=== PATIENT | male | born 1945 | race Caucasian/White ===

== ENCOUNTER 2017-03-16 11:52 | Emergency (ER) | payer OTHER ==
[~2017-03-16] VITALS: Ht 172.7 cm; Wt 75.0 kg
[2017-03-16 12:17] VITALS: BP 134/73; PULSE 93; RESP 16; TEMP 98.9; O2SAT 95
[2017-03-16] MEDS ORDERED: LIDOCAINE HCL 1% 50 ML VIAL INFIL ONE (13:30)
--- NOTE | 2017-03-16 13:34 | PD ---
HPI Chief Complaint: Laceration/Skin Injury Time Seen by Provider: 12:29 Travel History International Travel<30 days: No Contact w/Intl Traveler<30days: No Traveled to known affect area: No History of Present Illness HPI 71-year-old male presents emergency Department with complaint of a laceration to his right hand from glass falling. He arrived via EMS and apparently had a syncopal episode on the ambulance secondary to looking at the blood. He was in a sitting position and did not fall. Not up-to-date on tetanus update. Denies decreased range of motion, decreased strength to the affected hand. Reports numbness and tingling to the medial aspect of the right thumb, otherwise denies loss of sensation. Denies anticoagulant therapy. Has not taken any medications to alleviate symptoms. The hand is wrapped and bleeding is controlled. Symptoms are mild in severity. No known aggravating or relieving factors. No known allergies. Denies significant past medical history. Primary care provider is the OR clinic. Has no other medical complaints. No other modifying factors or associated signs and symptoms. PFSH Past Medical History Cardiovascular Problems: Yes High Cholesterol: Yes Past Surgical History Other Surgery: Yes (HERNIAX2) Social History Alcohol Use: No Tobacco Use: Yes (CHEWING TOBACCO) Substance Use: No Allergies-Medications (Allergen,Severity, Reaction): Coded Allergies: No Known Allergies (Unverified , 03/16/17) Reported Meds & Prescriptions Reported Meds & Active Scripts Active Ibuprofen 800 Mg Tab 800 Mg PO Q8H PRN Bactrim DS (Sulfamethoxazole-Trimethoprim) 800-160 Mg Tab 1 Tab PO BID 7 Days Review of Systems Except as stated in HPI: all other systems reviewed are Neg Physical Exam Narrative GENERAL: Well-nourished, well-developed male patient, in no acute distress SKIN: Warm and dry. Dorsal aspect of right hand with approximately 3 cm laceration to the first metacarpal region; without erythema, edema; bleeding controlled; all fingers with full range of motion and good opposition. Right upper extremity supple and non-tense with 2+ radial pulse and sensory intact. HEAD: Atraumatic. Normocephalic. EYES: Pupils equal and round. No scleral icterus. No injection or drainage. ENT: Mucosa pink and moist. Airway patent. NECK: Trachea midline. CARDIOVASCULAR: Regular rate. RESPIRATORY: No accessory muscle use. GASTROINTESTINAL: Flat. MUSCULOSKELETAL: No obvious deformities. No clubbing. No cyanosis. No edema. NEUROLOGICAL: Awake and alert. Oriented 3. No obvious cranial nerve deficits. Motor grossly within normal limits. Normal speech. PSYCHIATRIC: Appropriate mood and affect; insight and judgment normal. Data Data Last Documented VS Vital Signs Date Time Temp Pulse Resp B/P (MAP) Pulse Ox O2 Delivery O2 Flow Rate FiO2 03/16/17 12:17 98.9 93 16 134/73 (93) 95 Room Air Orders Orders Hand, Complete ([id number]) (03/16/17 12:46) Lidocaine 1% Inj (Xylocaine 1% Inj) (03/16/17 13:45) Wound Care (03/16/17 15:04) Ed Discharge Order (03/16/17 15:04) [facility] Medical Decision Making Medical Screen Exam Complete: Yes Emergency Medical Condition: Yes Medical Record Reviewed: Yes Differential Diagnosis Laceration, contusion, abrasion, hand fracture Narrative Course 71-year-old male with laceration to the right hand. Declines tetanus update. Right hand x-ray ordered. See my procedure note for laceration repair. 1505: Right hand x-ray concludes: Hand X-Ray 03/16/17 1246 Signed Impressions: Service Date/Time: March 13:07 - CONCLUSION: 1. No acute fracture or dislocation. No radiopaque foreign bodies. Russel Smiley MD Discussed findings with the patient. Bactrim and ibuprofen prescribed for home. Instructed patient to follow up with primary care provider. Patient verbalizes understanding and agreement with treatment plan. Patient is medically cleared and stable for discharge. Discussed reasons to return to the emergency department. Patient agrees with treatment plan. The patients vital signs are stable and the patient is stable for outpatient follow-up and treatment. Patient discharged home, stable and in no acute distress. Procedures Procedure Narrative LACERATION LOCATION: Worse last night of right hand over the first metacarpal region LENGTH: 3 cm NUMBER OF STITCHES/DOT: 6 simple interrupted sutures REPAIR: The area of the laceration was prepped with Betadine and sterilely draped. The laceration was infiltrated with 1% lidocaine. The wound was copiously irrigated and explored without evidence of foreign body, tendon injury or neurovascular injury. The wound was closed using 4-0 Prolene. This was a single layer repair. A sterile dressing was applied. The patient was advised to keep the dressing clean and dry. Patient tolerated the procedure well. Diagnosis Primary Impression: Laceration of right hand Qualified Codes: S61.411A - Laceration without foreign body of right hand, initial encounter Referrals: Primary Care Physician Patient Instructions: Care For Your Stitches (ED), General Instructions, Laceration (ED) Additional Instructions: Keep area clean and dry Limit right hand activity to decrease risk of sutures coming undone Ibuprofen or Tylenol as directed and as needed for pain and inflammation Ice pack to area as needed to decrease pain Return to the emergency department or follow-up with primary care provider in 7- 10 days for suture removal Follow up with primary care provider within 2-4 days Return to the emergency department immediately with worsening of symptoms, particularly if reddened streaks up or down the affected extremity from the suture site, fever, numbness/tingling in the affected extremity, loss of sensation in the affected extremity, severe swelling of the affected Med/Other Pt SpecificInfo: Prescription(s) given Scripts Ibuprofen (Ibuprofen) 800 Mg Tab 800 MG PO Q8H Y for PAIN SCALE 1 TO 10, #20 TAB 0 Refills Prov: Deirdre Miller 03/16/17 Sulfamethoxazole-Trimethoprim (Bactrim DS) 800-160 Mg Tab 1 TAB PO BID for Infection for 7 Days, #14 TAB 0 Refills Prov: Deirdre Miller 03/16/17 Disposition: 01 DISCHARGE HOME Condition: Stable Deirdre Miller Mar 16, 2017 13:34
[2017-03-16] MEDS ORDERED: IBUP1TAB7 PO (13:36)
[2017-03-16] MEDS ORDERED: BACT800T5 PO (13:36)
[2017-03-16] MEDS ORDERED: LIDOCAINE HCL 1% 30 ML VIAL INFIL ONE (13:45)
--- NOTE | 2017-03-16 14:01 | RADRPT ---
EXAM DATE/TIME: 03/16/2017 13:07 [facility] COMPARISON: No previous studies available for comparison. INDICATIONS : Window pane fell on right hand lacerating base of thumb into palm of hand, MEDICAL HISTORY : None. SURGICAL HISTORY : None. ENCOUNTER: Initial ACUITY: 1 day PAIN SCORE: 10/10 LOCATION: Right hand FINDINGS: Three view examination of the right hand demonstrates no soft tissue swelling, dislocation, or fractu re. The carpal bones appear intact. The interphalangeal and metacarpophalangeal joints are intact. Soft tissue laceration in the radial aspect of the hand. No radiopaque foreign bodies. CONCLUSION: 1. No acute fracture or dislocation. No radiopaque foreign bodies. Russel Smiley MD on March 16, 2017 at 13:58 Board Certified Radiologist. This report was verified electronically.
== END 2017-03-16 15:35 | disposition home or self-care (01) ==
LOC: NEPD 11:52
DX: S61.411A Laceration without foreign body of right hand, initial encounter (principal); R55 Syncope and collapse; R20.0 Anesthesia of skin; Z72.0 Tobacco use; W25.XXXA Contact with sharp glass, initial encounter
CPT/HCPCS: 12002; 73130